=== PATIENT | male | born 1980 | race Caucasian/White ===

== ENCOUNTER 2025-07-20 08:02 | Outpatient (REF) | payer BC, SELFPAY ==
[2025-07-20 13:16] LABS: MANUAL DIFF FLAG NO
[2025-07-20 13:23] LABS: Appearance Urine Clear; Glucose Urine UA Negative (Negative); PH 6.5 (5.0-9.0); Specific Gravity - Urine <= 1.005 (1.005-1.025)
[2025-07-20 13:26] LABS: Hematocrit 44.4 % (42.0-52.0); Hemoglobin 15.2 g/dl (14.0-18.0); Imm Gran Abs Auto 0.01 X10*3/uL (0.00-0.03); Imm Gran Pct Auto 0.2 % (0.0-0.4); Lymphocytes Absolute Auto 1.6 X10*3/uL (1.2-4.9); Mean Corpuscular HGB Conc 34.2 g/dl (31.0-36.0); Mean Corpuscular Hemoglobin 30.0 pg (27.0-33.0); Mean Corpuscular Volume 87.6 fL (80.0-98.0); NRBC Abs Auto 0.000 X10*3/uL (0.0-0.012); NRBC Pct Auto 0.0 /100WBC (0.0-0.2); Platelet Count 296 X10*3/uL (160-400); Red Blood Count 5.07 X10*6/uL (4.60-5.80); White Blood Count 4.6 X10*3/uL (4.8-10.8)
[2025-07-20 13:44] LABS: Hemoglobin A1C 143.5672 umol/L; Total Hemoglobin (HGBA1C) 3913.8310 umol/L
[2025-07-20 13:54] LABS: Alanine Aminotransferase 33 U/L (0-40); Albumin Level 4.9 g/dL (3.5-5.0); Alkaline Phosphatase 42 U/L (39-117); Anion Gap 12 (12-20); Aspartate Amino Transferase 43 U/L (5-37); Blood Urea Nitrogen 18 mg/dL (9-16); Calcium 9.5 mg/dL (8.4-10.2); Carbon Dioxide 26 mmol/L (22-29); Chloride 107 mmol/L (96-108); Cholesterol 184 mg/dL (<200); Estimated Glomerular Filt Rate > 60; HDL Cholesterol 55 mg/dL (>40); Potassium 4.7 mmol/L (3.3-5.1); Sodium 140 mmol/L (135-145); Total Protein 7.1 g/dL (6.5-8.0); Triglycerides 81 mg/dL (<150)
[2025-07-23 03:55] LABS: HBS Num1 0.38 mIU/mL (0-7.99); HBsAGNum1 0.42 S/CO (0.00-0.99); Hepatitis B Surface Antigen Negative (Negative); ~HepC Num1 0.11 S/CO (0.00-0.79); ~Hepatitis B Surface Antibody NONREACTIVE (Nonreactive); ~Hepatitis C Antibody Nonreactive (Nonreactive)
== END 2025-07-20 08:03 | disposition home or self-care (01) ==
LOC: HO.HKASLDS 08:02
PROVIDERS: PCP Student in an Organized Health Care Education/Training Program; Visit Provider Student in an Organized Health Care Education/Training Program
DX: Z00.00 Encounter for general adult medical examination without abnormal findings (principal); Z01.89 Encounter for other specified special examinations; Z71.89 Other specified counseling; Z13.9 Encounter for screening, unspecified; Z11.3 Encounter for screening for infections with a predominantly sexual mode of transmission; Z13.1 Encounter for screening for diabetes mellitus; Z13.220 Encounter for screening for lipoid disorders; Z13.6 Encounter for screening for cardiovascular disorders; R22.1 Localized swelling, mass and lump, neck; B35.3 Tinea pedis; F17.200 Nicotine dependence, unspecified, uncomplicated; Z71.6 Tobacco abuse counseling
CPT/HCPCS: 36415; 80053; 80061; 81003; 83036; 85025; 86706; 86803; 87340; 96127

== ENCOUNTER 2025-07-20 08:02 | Outpatient (AMB) | payer BC, SELFPAY ==
--- NOTE | 2025-07-20 08:05 | A.OFFPC_ITS ---
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 pt have a bump in the neck and request lab work. Pot Feeder Required: No Accompanied by: Self / Same As Patient Allergies No Known Allergies Allergy (Verified 07/20/25 08:06) Tobacco use date assessed: 07/20/25 Dental Screening Dental Screen Date: 07/20/25 Did you have a dental visit in the last 12 months?: No Did you have a dental problem in the last 6 months where you did not have access to dental care?: No Was dental information given to patient?: No HPI HPI Comments History of Present Illness Details History of Present Illness The patient is a 44-year-old male presenting with a wellness visit and evaluation of a neck mass. The patient reports a mass on the posterior aspect of his neck, which he has noticed for approximately 10 years. The mass has been progressively growing and is currently about 3 x 3 cm in size. He expresses concern about the mass and seeks evaluation to determine its nature. The patient has a history of nicotine use, having used tobacco products since the age of 14. He currently uses nicotine pouches after transitioning from chewing tobacco. He has attempted to quit using nicotine patches but has not tried nicotine gum. The patient reports chronic athlete's foot, which he manages with topical treatments such as Tinactin and occasionally Vaseline. He experiences flare-ups, especially due to prolonged periods in work boots, and has tried changing socks and using powders to manage symptoms. The patient denies any significant family history of cancer, except for his father who had prostate cancer and grandparents with lung cancer due to heavy smoking. He is , sexually active, and has been with his for over 20 years. Review of Systems - General: Denies fatigue, weight loss, or fever - Skin: Reports chronic athlete's foot - Respiratory: Denies dyspnea or cough - Cardiovascular: Denies chest pain or p alpitations - Gastrointestinal: Denies abdominal joe n or changes in bowel habits - Neurological: Denies headaches or dizz iness - Sleep: Reports snoring but denies dayt dexter somnolence 10-point ROS reviewed and negative excep t as noted in HPI Physical Exam Gen: NAD, A&O x3 HEENT: NC/AT, PERRLA, EOMI, OP clear, MMM Neck: Supple, no LAD/JVD/bruit, 3 x 3 cm mass on the posterior aspect, high upper back to the left side COR: RRR, S1 S2, no m/r/g Lungs: CTAB, BS equal bilat, no r/r/w Abd: NT/ND, +BS, no HSM, no mass/rebound/guarding Ext: No CCE, 2+ pulses Neuro: CN II-XII grossly intact, motor/sensory intact, reflexes 2+, gait normal Skin: WDI, no rash, chronic athlete's foot managed with powders and sock changes Assessment and Plan 1. Lipoma The patient presents with a mass on the posterior neck, suspected to be a lipoma. An ultrasound will be conducted to confirm the diagnosis. If confirmed, the patient may opt for surgical excision for cosmetic reasons. 2. Nicotine dependence The patient has a long history of nicotine use and has attempted cessation with patches. Further counseling on cessation strategies, including the use of nicotine gum and potential pharmacotherapy, will be provided. 3. Chronic athlete's foot The patient manages symptoms with topical treatments and lifestyle modifications. Recommendations include continued use of antifungal powders and changing socks regularly to prevent flare-ups. 4. Preventative care Baseline laboratory tests including CBC, comprehensive metabolic panel, lipid panel, and A1c screening will be conducted to assess overall health status. Patient Instructions - Schedule an ultrasound for the neck ma to confirm if it is a lipoma. - Consider using nicotine gum in additio n to patches for smoking cessation. - Use antifungal powders and change sock s regularly to manage athlete's foot. - Complete the recommended lab tests for a comprehensive health assessment. [facility] Medical History (Updated 07/20/25 @ 08:47 by Gregory Godoy MD) Nicotine dependence Family History (Updated 07/20/25 @ 08:07 by Briseyda Barillas MA) Father No problems noted. Mother No problems noted. Social History (Reviewed 07/20/25 @ 08:06 by ANNABELLE Pitts Housing: House Alcohol intake: current Alcohol intake frequency: 0-2 drinks per day Patient Tobacco Use Status: Former Tobacco user Substance Use Type: Marijuana service: No Current occupational status: employed Cognitive needs: No Hearing needs: No Vision needs: No Questionnaire PHQ-9 Over the last 2 weeks, how often have you been bothered by any of the following problems? 1. Little interest or pleasure in doing things: not at all 2. Feeling down, depressed, or hopeless: not at all 3. Trouble falling or staying asleep, or sleeping too much: not at all 4. Feeling tired or having little energy: not at all 5. Poor appetite or overeating: not at all 6. Feeling bad about yourself - or that you are a failure or have let yourself or your family down: not at all 7. Trouble concentrating on things, such as reading the newspaper or watching television: not at all 8. Moving or speaking so slowly that other people could have noticed. Or the opposite - being so fidgety or restless that you have been moving around a lot more than usual: not at all 9. Thoughts that you would be better off or of hurting yourself in some way: not at all Total score: 0 Source: Developed by Drs. Odin Moore, Tuyet Walters, Otf Wilkerson and colleagues, with an educational brennan from [employer]. Thrive Questionnaire Date Thrive assessed: 07/20/25 I am a: Patient What is your living situation today?: I have a steady place to live Within the past 12 months, did the food you bought not last and you didn't have the money to get more?: Never true Within the past 12 months, did you worry whether your food would run out before you got money to buy more?: Never true Do you have trouble paying for medicines?: No Do you have trouble getting transportation to medical appointments?: No Do you have trouble paying your heating and electricity bill?: No Do you have trouble taking care of your child, family member or friend?: No Do you have trouble with day-to-day activities such as bathing, preparing meals, shopping, managing finances, etc.?: No Are you currently unemployed and looking for a job?: No Are you interested in more education?: No Please select the resources that you would like help with: None Currently or been in a relationship where the following occur: No concerns reported THRIVE Score: 0 AUDIT C Alcohol Use Questionnaire (AUDIT-C) 1. How often do you have a drink containing alcohol?: 2-3 times a week 2. How many drinks containing alcohol do you have on a typical day when you are drinking?: 1 or 2 3. How often do you have six or more drinks on one occasion?: Never Total Score: 3 VICKY-7 AMB Questionnaire VICKY-7 Date VICKY - 7 assessed: 07/20/25 Feeling nervous, anxious, or on edge: 0 = Not at all Not being able to stop or control worryin = Not at all Worrying too much about different things: 0 = Not at all Trouble relaxin = Not at all Being so restless that it is hard to sit still: 0 = Not at all Becoming easily annoyed or irritable: 0 = Not at all Feeling afraid as if something awful might happen: 0 = Not at all Total VICKY-7 score (0-4 normal; 5-9 mild; 10-14 moderate; 15-21 severe): 0 Source: Developed by Drs. Odin Moore, Tuyet Walters, Otf Wilkerson and colleagues, with an educational brennan from [employer]. Review of Systems Const Details: 10-point ROS reviewed and negative except as noted in HPI. Physical exam (Primary Care) 27 BMI Assessment/Plan discussion: High Tobacco/Smoking Status: Tobacco use Status Tobacco use date assessed 07/20/25 07/20/25 08:08 Patient Tobacco Use Status Never used Tobacco 07/20/25 08:08 PHQ-9: PHQ-9 Score PHQ-9: Total score 0 07/20/25 08:08 Thrive Assessment: Date of Thrive Assessment Date Thrive assessed 07/20/25 07/20/25 08:08 Currently or been in a relationship where the following occur: No concerns reported Const Other: * Gen: NAD, A&O x3 * HEENT: NC/AT, PERRLA, EOMI, OP clear, MMM * Neck: Supple, no LAD/JVD/bruit * COR: RRR, S1 S2, no m/r/g * Lungs: CTAB, BS equal bilat, no r/r/w * Abd: NT/ND, +BS, no HSM, no mass/rebound/guarding * Ext: No CCE, 2+ pulses * Neuro: CN II?XII grossly intact, motor/sensory intact, reflexes 2+, gait normal * Skin: WDI, no rash Coding Level of Care Code New Pt Level 3 (44116) Diagnoses Regular check-up Z00.00 Routine lab draw Z01.89 Other specified counseling Z71.89 Encounter for screening, unspecified Z13.9 Routine screening for STI (sexually transmitted infection) Z11.3 Screening for diabetes mellitus Z13.1 Screening for lipoid disorders Z13.220 Hypertension screen Z13.6 Nicotine dependence F17.200 Mass in neck R22.1 Tinea pedis B35.3 Assessment & Plan Assessment & Plan (1) Regular check-up: Code(s): Z00.00 - Encounter for general adult medical examination without abnormal findings (2) Routine lab draw: Code(s): Z01.89 - Encounter for other specified special examinations (3) Other specified counseling: Code(s): Z71.89 - Other specified counseling (4) Encounter for screening, unspecified: Code(s): Z13.9 - Encounter for screening, unspecified (5) Routine screening for STI (sexually transmitted infection): Code(s): Z11.3 - Encounter for screening for infections with a predominantly sexual mode of transmission (6) Screening for diabetes mellitus: Code(s): Z13.1 - Encounter for screening for diabetes mellitus (7) Screening for lipoid disorders: Code(s): Z13.220 - Encounter for screening for lipoid disorders (8) Hypertension screen: Code(s): Z13.6 - Encounter for screening for cardiovascular disorders (9) Nicotine dependence: Code(s): F17.200 - Nicotine dependence, unspecified, uncomplicated Category: Medical (10) Mass in neck: Code(s): R22.1 - Localized swelling, mass and lump, neck (11) Tinea pedis: Code(s): B35.3 - Tinea pedis Plan
[2025-07-20 08:23] VITALS: BP 112/86; PULSE 78; RESP 16; TEMP 36.3; O2SAT 98; BMI 27.4
== END 2025-07-20 08:46 | disposition home or self-care (01) ==
PROVIDERS: PCP Student in an Organized Health Care Education/Training Program; Visit Provider Student in an Organized Health Care Education/Training Program
DX: Z00.00 Encounter for general adult medical examination without abnormal findings (principal); R22.1 Localized swelling, mass and lump, neck; B35.3 Tinea pedis; F17.200 Nicotine dependence, unspecified, uncomplicated; Z71.89 Other specified counseling; Z13.9 Encounter for screening, unspecified; Z11.3 Encounter for screening for infections with a predominantly sexual mode of transmission; Z13.1 Encounter for screening for diabetes mellitus; Z13.220 Encounter for screening for lipoid disorders; Z13.6 Encounter for screening for cardiovascular disorders

== ENCOUNTER 2025-08-06 08:00 | Outpatient (AMB) | payer BC, SELFPAY ==
--- NOTE | 2025-08-06 08:01 | A.OFFPC_ITS ---
Vital Signs 08/06/25 08:02 Height 5 ft 11.65 in Weight 203 lb 2 oz BMI 27.8 BP 112/80 Blood Pressure Location Lt brachial Position Sitting Respiration 16 Pulse 72 Pulse Source Pulse Oximeter Temp 98 F Temp Source Oral Pulse Oximetry (%) 98 Oxygen Delivery Method Room Air Intake Visit Reasons: 2 week follow up Intake Note: pt stated he haven't seen a pcp and the job required him to do so so he will like to talk about some stuff including a vasectomy. pt have a bump in the neck and request lab work. Medical Resident Required: No Accompanied by: Self / Same As Patient Allergies No Known Allergies Allergy (Verified 08/06/25 08:06) Tobacco use date assessed: 07/20/25 Dental Screening Dental Screen Date: 07/20/25 Did you have a dental visit in the last 12 months?: No Did you have a dental problem in the last 6 months where you did not have access to dental care?: No Was dental information given to patient?: No HPI HPI Comments History of Present Illness Details History of Present Illness The patient is a 44-year-old male presenting for a routine check-up and laboratory review. Mild leukopenia: - White blood cell count is slightly low at 4.6, with no associated symptoms, and will be monitored with a repeat test in three months. Elevated AST level: - AST level is elevated at 43, likely du e to alcohol consumption, and reduction in alcohol intake is advised. Hyperlipidemia: - LDL cholesterol is slightly elevated a t 113, with total cholesterol at 184 and HDL at 55, indicating a need for lifestyle management. Lack of Hepatitis B immunity: - Screening indicates lack of Hepatitis B immunity, and vaccination is recommended when available. Review of Systems 10-point ROS reviewed and negative excep t as noted in HPI Past Medical History Health Maintenance - Hepatitis B vaccination recommended du e to lack of immunity. Physical Exam General: Well-appearing, in no acute distress. Vital signs: Within normal limits. HEENT: Normocephalic, atraumatic. PERRLA, EOMI. Conjunctiva clear, sclera anicteric. Oropharynx clear, mucous membranes moist. TMs intact bilaterally. Neck: Supple, no lymphadenopathy, no thyromegaly, no JVD or carotid bruits. Note: Patient has a bump on the back of the neck, referred to radiology. Cardiovascular: RRR, normal S1/S2, no murmurs, rubs, or gallops. Peripheral pulses 2+ and symmetric. No edema. Respiratory: Lungs clear to auscultation bilaterally, no wheezes, rales, or rhonchi. Normal effort. Abdomen: Soft, non-tender, non-distended. Normoactive bowel sounds. No hepatosplenomegaly, no masses. MSK: Full range of motion, no joint swelling or deformity. Normal gait. Skin: Warm, dry, intact. No rashes, lesions, or pallor. Neuro: Alert and oriented x3. Cranial nerves II-XII intact. Strength 5/5 throughout. Sensation intact. Reflexes 2+ symmetric. Normal coordination and gait. Psych: Appropriate mood and affect. Normal judgment and insight. Plan 1. Mild Leukopenia - Monitor white blood cell count with a repeat test in three months. 2. Elevation of levels of liver transami nase levels R74.01 - Reduce alcohol consumption to address elevated AST levels. 3. Hyperlipidemia, unspecified E78 .5 - Implement lifestyle modifications to m anage LDL cholesterol levels. 4. Encounter for antibody response [facility] Z01.84 - Obtain Hepatitis B vaccination when av ailable to ensure immunity. Discussion Notes During the visit, I discussed with the patient the slightly low white blood cell count and the plan to monitor it with a repeat test in three months. I explained the elevated AST level, likely due to alcohol consumption, and advised reducing alcohol intake. We reviewed the cholesterol levels, noting the slightly elevated LDL, and discussed lifestyle modifications to manage it. I also recommended the Hepatitis B vaccination due to lack of immunity and will notify the patient once the vaccine is available. Patient Instructions - Monitor white blood cell count with a repeat test in three months. - Reduce alcohol consumption to help low er AST levels. - Follow a healthy lifestyle to manage c holesterol levels. - Get the Hepatitis B vaccination when a vailable. [facility] Medical History Nicotine dependence Family History Father No problems noted. Mother No problems noted. Social History Housing: House Alcohol intake: current Alcohol intake frequency: 0-2 drinks per day Patient Tobacco Use Status: Former Tobacco user Substance Use Type: Marijuana service: No Current occupational status: employed Cognitive needs: No Hearing needs: No Vision needs: No Questionnaire PHQ-9 Over the last 2 weeks, how often have you been bothered by any of the following problems? 1. Little interest or pleasure in doing things: not at all 2. Feeling down, depressed, or hopeless: not at all 3. Trouble falling or staying asleep, or sleeping too much: not at all 4. Feeling tired or having little energy: not at all 5. Poor appetite or overeating: not at all 6. Feeling bad about yourself - or that you are a failure or have let yourself or your family down: not at all 7. Trouble concentrating on things, such as reading the newspaper or watching television: not at all 8. Moving or speaking so slowly that other people could have noticed. Or the opposite - being so fidgety or restless that you have been moving around a lot more than usual: not at all 9. Thoughts that you would be better off or of hurting yourself in some way: not at all Total score: 0 Source: Developed by Drs. Odin Moore, Tuyet Walters, Otf Wilkerson and colleagues, with an educational brennan from [employer]. Thrive Questionnaire Date Thrive assessed: 07/20/25 I am a: Patient What is your living situation today?: I have a steady place to live Within the past 12 months, did the food you bought not last and you didn't have the money to get more?: Never true Within the past 12 months, did you worry whether your food would run out before you got money to buy more?: Never true Do you have trouble paying for medicines?: No Do you have trouble getting transportation to medical appointments?: No Do you have trouble paying your heating and electricity bill?: No Do you have trouble taking care of your child, family member or friend?: No Are you currently unemployed and looking for a job?: No Are you interested in more education?: No Please select the resources that you would like help with: None Currently or been in a relationship where the following occur: No concerns reported THRIVE Score: 0 AUDIT C Alcohol Use Questionnaire (AUDIT-C) 1. How often do you have a drink containing alcohol?: 2-3 times a week 2. How many drinks containing alcohol do you have on a typical day when you are drinking?: 1 or 2 3. How often do you have six or more drinks on one occasion?: Monthly Total Score: 5 VICKY-7 AMB Questionnaire VICKY-7 Date VICKY - 7 assessed: 07/20/25 Feeling nervous, anxious, or on edge: 1 = Several days Not being able to stop or control worryin = Not at all Worrying too much about different things: 1 = Several days Trouble relaxin = Several days Being so restless that it is hard to sit still: 0 = Not at all Becoming easily annoyed or irritable: 1 = Several days Feeling afraid as if something awful might happen: 0 = Not at all Total VICKY-7 score (0-4 normal; 5-9 mild; 10-14 moderate; 15-21 severe): 4 Source: Developed by Drs. Odin Moore, Tuyet Walters, Otf Wilkerson and colleagues, with an educational brennan from [employer]. Physical exam (Primary Care) Vital Signs: Last Vital Signs Temp 98 F 08/06/25 08:02 Pulse 72 08/06/25 08:02 Resp 16 08/06/25 08:02 BP 112/80 08/06/25 08:02 Pulse Ox 98 08/06/25 08:02 Oxygen Delivery Method Room Air 08/06/25 08:02 BMI result Body Mass Index 27.8 Tobacco/Smoking Status: Tobacco use Status Tobacco use date assessed 07/20/25 08/06/25 08:03 Patient Tobacco Use Status Former Tobacco user 08/06/25 08:03 PHQ-9: PHQ-9 Score PHQ-9: Total score 0 08/06/25 08:09 Thrive Assessment: Date of Thrive Assessment Date Thrive assessed 07/20/25 08/06/25 08:03 Currently or been in a relationship where the following occur: No concerns reported Coding Level of Care Code Tele Est Pt Level 3 (40032) Diagnoses Other decreased white blood cell (WBC) count D72.818 Leukopenia type: other Elevation of levels of liver transaminase levels R74.01 Dyslipidemia E78.5 Encounter for antibody response examination Z01.84 Encounter to discuss test results Z71.2 Overweight (BMI 25.0-29.9) E66.3 Assessment & Plan Assessment & Plan (1) Leukopenia: Code(s): D72.819 - Decreased white blood cell count, unspecified Qualifiers: Leukopenia type: other Qualified Code(s): D72.818 - Other decreased white blood cell count (2) Elevation of levels of liver transaminase levels: Code(s): R74.01 - Elevation of levels of liver transaminase levels (3) Dyslipidemia: Code(s): E78.5 - Hyperlipidemia, unspecified (4) Encounter for antibody response examination: Code(s): Z01.84 - Encounter for antibody response examination (5) Encounter to discuss test results: Code(s): Z71.2 - Person consulting for explanation of examination or test findings (6) Overweight (BMI 25.0-29.9): Code(s): E66.3 - Overweight Plan
[2025-08-06 08:02] VITALS: BP 112/80; PULSE 72; RESP 16; TEMP 36.6; O2SAT 98; BMI 27.8
== END 2025-08-06 08:16 | disposition home or self-care (01) ==
LOC: HO.HMCFMS 08:01
PROVIDERS: PCP Student in an Organized Health Care Education/Training Program; Visit Provider Student in an Organized Health Care Education/Training Program
DX: D72.818 Other decreased white blood cell count (principal); R74.01 Elevation of levels of liver transaminase levels; E78.5 Hyperlipidemia, unspecified; Z01.84 Encounter for antibody response examination; Z71.2 Person consulting for explanation of examination or test findings; E66.3 Overweight

== ENCOUNTER 2025-09-12 14:37 | Outpatient (REF) | payer BC, SELFPAY ==
--- NOTE | ~2025-09-12 | US_ITS ---
EXAMINATION: US HEAD NECK SOFT TISSUE HISTORY: R22.1 - Localized swelling, mass and lump, neck COMPARISON: There are no prior studies available for comparison. FINDINGS: Sonographic examination of the left lower neck was performed. There is a 2.7 x 1.5 x 2.7 cm cystic mass with low-level internal echoes just beneath the skin which may represent a sebaceous cyst. US/US soft tiss head and/or neck IMPRESSION: 2.7 x 1.7 x 2.7 cm complex appearing cystic mass beneath the skin of the left lower neck corresponding to the palpable findings. This may represent a sebaceous cyst. Clinical correlation is recommended. Electronically signed by: Odin Patel MD 09/12/2025 03:25 PM EDT
== END 2025-09-12 14:38 | disposition home or self-care (01) ==
LOC: HO.US 14:37
PROVIDERS: PCP Student in an Organized Health Care Education/Training Program; Visit Provider Student in an Organized Health Care Education/Training Program
DX: R22.1 Localized swelling, mass and lump, neck (principal)
CPT/HCPCS: 76536

== ENCOUNTER → 2025-09-12 14:39 | Outpatient (BNV) | payer BC, SELFPAY | PROVIDERS: PCP Student in an Organized Health Care Education/Training Program; Visit Provider Radiology Diagnostic Radiology | DX: R22.1 Localized swelling, mass and lump, neck (principal) | CPT/HCPCS: 76536 ==

== ENCOUNTER 2025-10-08 13:52 | Outpatient (AMB) | payer BC, SELFPAY ==
--- NOTE | 2025-10-08 13:53 | A.OFFVIS_ITS ---
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 Godoy. He presents to the office today for - vasectomy evaluation Vasectomy evaluation The patient presents for vasectomy consultation.? He is currently He has fathered 2 children, with a single partner The youngest child is 5 years old His partner is aware and permissive for a vasectomy Current form of control is hormones Current employment is fabricator The vasectomy may be complicated due to a history of no complicating issues. Patient education has been provided via [employer] video, via printed information, risks of failure, recovery time, bruising and potential pain syndrome have been stressed Discussion today focused on the presence of vasectomy and the risks, benefits and alternatives that are available. Vasectomy as intended as a permanent form of control. Printed information and literature was provided to the patient. Overall there is a one in 2500 failure rate. This can occur at any time after vasectomy. Risks were discussed highlighting hematoma, spermatocele, epididymal congestion, development of sperm antibodies, and development of chronic pain estimated between 1-5%. The procedure was reviewed in detail. Anatomical diagrams of the male genitalia were used to explain the location of the vas deferens. The vas deferens will be transected, the proximal end will be cauterized, a metal clip would be applied to separate the 2 vas deferens ends. It was explained the procedure will be done in the office and takes approximately 10-15 minutes. Less common problems that arise with vasectomy include hematoma, bleeding, allergic reaction to anesthetic, epididymal infection, epididymal congestion, scrotal discomfort, spermatic leak, spermatic granuloma and the possibility of antisperm antibodies. He understands these risks and wishes to proceed. Consent was signed at the office today. He also understands that it takes 12 weeks for sperm to fully clear the system. He will need to provide a semen sample at 12 weeks and if this is not clear a 2nd sample at 16 weeks. Medical clearance to stop using protection will only be provided if he satisfies published criteria for sperm clearance. [facility] Medical History Nicotine dependence Family History Father No problems noted. Mother No problems noted. Social History Housing: House Alcohol intake: current Alcohol intake frequency: 0-2 drinks per day Patient Tobacco Use Status: Former Tobacco user Substance Use Type: Marijuana service: No Current occupational status: employed Cognitive needs: No Hearing needs: No Vision needs: No Review of Systems Const All systems reviewed & are unremarkable except as noted in HPI and below Physical Exam Const General: cooperative, healthy appearing, comfortable, no acute distress, well developed, alert and awake Orientation/consciousness: patient oriented x3 Limitations: no limitations HEENT Head: Yes normal to inspection, Yes normocephalic and Yes atraumatic Ears: hearing grossly normal bilaterally Eyes General: appearance normal, both eyes and all related structures Neck Neck: Yes normal visual inspection and Yes trachea midline Chest Chest palpation & inspection: normal inspection of the chest Resp Effort & Inspection: normal respiratory effort and able to speak in complete sentences Cardio Rate: regular rate GI Inspection: Yes normal to inspection General: Yes no CVA tenderness Back/Spine/Pelvis Back: no CVA tenderness Skin General skin exam: no rashes or lesions noted Neuro General: patient oriented x3 Extrem General: Yes normal to inspection Psych Appearance: grossly normal and well kempt Mental Status: mental status grossly normal Speech and movement: Normal speech and movement present and Clear speech present Affect: normal affect Attitude: cooperative Thought process: Normal thought process present Thought content: Normal thought content present Insight: Fair insight present (Psych) Judgement: Fair judgement present (Psych) Assessment & Plan Assessment & Plan (1) Anxiety about health: Code(s): R45.89 - Other symptoms and signs involving emotional state Category: Medical (2) Vasectomy evaluation: Code(s): Z30.09 - Encounter for other general counseling and advice on contraception Category: Medical Plan Vasectomy was discussed in detail; risks and benefits; as noted above. We discussed in office semen analysis verses fellows kit. Prescriptions provided; we discussed importance of bringing medication to office day of procedure Consent obtain All questions were answered Will schedule for in office vasectomy Follow-up per doctor's orders; or sooner with any issues, concerns, and or questions. Medications: New tramadol Bringing medication to office day of procedure 50 mg PO Q8H PRN 12 tabs 0RF pain 4 days N43.3 - Hydrocele, unspecified diazepam (Valium) Bringing medication to office day of procedure 2 mg PO DAILY 2 tabs 0RF anxi ety R45.89 - Other symptoms and signs involving emotional state Patient Instructions: The patient had an opportunity to ask questions regarding the treatment plan. All questions were answered. Physical exam, labs, and imaging were discussed and reviewed in detail. As well as risks, benefits, and discussion of treatment choices. No major barriers to understanding were identified. The patient expressed understanding and agreement with the above treatment plan. The patient was made aware they should contact our office by phone for worsening of their current condition, the appearance of new symptoms, or with any questions or concerns. Compliance is encouraged with any medications and follow up testing that is ordered. It is a privilege to be allowed the opportunity to participate in? your urological care.? Again, if you have any questions or concerns If you have any questions or concerns please do not hesitate to contact me. The office is [phone]. This note is constructed using voice recognition software. While every effort has been made to ensure accuracy mental health practitioner errors may have been included. Yours sincerely, CARLOS Pozo Coding Level of Care Code New Pt Level 4 (73707) Diagnoses Anxiety about health R45.89 Vasectomy evaluation Z30.09
== END 2025-10-08 14:48 | disposition home or self-care (01) ==
LOC: HO.HUSH 13:53
PROVIDERS: PCP Student in an Organized Health Care Education/Training Program; Visit Provider Nurse Practitioner Family
DX: R45.89 Other symptoms and signs involving emotional state (principal); Z30.09 Encounter for other general counseling and advice on contraception
CPT/HCPCS: 99204